=== PATIENT | female | born 1930 | race Caucasian/White ===

== ENCOUNTER 2017-04-10 14:00 | Inpatient (IN) | payer MEDICARE ==
[~2017-04-10] VITALS: Ht 160 cm; Wt 69.7 kg
--- NOTE | ~2017-04-10 | OR ---
PATIENT'S NAME: KIAN CASAS [facility] AGE: 87 Y [address] ROOM: [place] [address] LOCATION: [facility] ADMIT DATE: 04/23/2017 OR/Procedure Report DISCHARGE DATE: FAMILY PHYSICIAN: Ye Serra MD ATTENDING PHYSICIAN: ELIANA BURRIS SURGEON: Eliana Burris MD PLANER OFFBEARER: 1. Omar Simpson PA-C. 2. Saqib Roberts CST/DAILY. DATE OF PROCEDURE: 04/23/2017 PRE-OP DIAGNOSES: 1. Degenerative joint disease, right knee. 2. Severe preoperative flexion contracture. POST-OP DIAGNOSES: 1. Degenerative joint disease, right knee. 2. Severe preoperative flexion contracture. OPERATION: Right total knee arthroplasty with computer navigation. ANESTHESIA: Spinal anesthesia plus adductor canal block plus periarticular local anesthesia (ropivacaine with epinephrine and Toradol). ESTIMATED BLOOD LOSS: Less than 10 mL. DRAIN: None. SPECIMEN: None. COMPLICATIONS: None. IMPLANT SYSTEM: Korbel Triathlon. Size 3 right posterior stabilized femoral component. Size 2 universal modular tibial base plate. 9 mm posterior stabilized size 2, X3 tibial polyethylene insert. 32 mm oval 3-pegged patella component. INDICATIONS FOR SURGERY: Kian Casas is an 87-year-old female who presents with advanced right knee degenerative joint disease and associated severely compromised activities of daily living. The patient has decided to proceed with knee replacement after having been thoroughly counseled regarding the associated risks, benefits, and limitations. We have specifically reviewed the risks and implications of infection, deep venous thrombosis, pulmonary embolism, mortality, neurovascular complications, blood transfusion (and associated potential for disease transmission or transfusion reaction), PATIENT'S NAME: KIAN CASAS [facility] AGE: 87 Y [address] ROOM: [place] [address] LOCATION: [facility] ADMIT DATE: 04/23/2017 OR/Procedure Report DISCHARGE DATE: FAMILY PHYSICIAN: Ye Serra MD ATTENDING PHYSICIAN: ELIANA BURRIS stiffness, instability, mechanical deterioration of the components (due to wear and or loosening), and the potential need for revision. We have also emphasized the importance of active involvement and compliance with post- operative physical therapy as a means of optimizing range of motion and functional recovery. Informed consent has been granted. DESCRIPTION OF PROCEDURE: The patient was positioned supine after administration of anesthesia and prophylactic antibiotics. A well-padded pneumatic tourniquet was placed around the right proximal thigh, and the right lower extremity was prepped and draped with vigilant sterile technique. The patient's name as well as the intended operative side and procedure were confirmed with a verbal time-out involving myself, the circulating nurse, the scrub nurse, and the anesthesiologist. Examination under anesthesia demonstrated severe flexion contracture. There were no active skin lesions or masses. There was a moderate effusion. There was no erythema. There was no abnormal warmth. Range of motion under anesthesia was from a 25-degree flexion contracture to 110 degrees of flexion. There was no ligamentous insufficiency. The right lower extremity was elevated and exsanguinated with an Esmarch wrap, and the pneumatic tourniquet was inflated to 300mmHg. The knee was approached through a longitudinal midline incision. A medial parapatellar arthrotomy was performed and the patella was everted. Examination of the joint space demonstrated a large amount of benign-appearing translucent synovial fluid. There was generalized moderate mildly proliferative synovitis. There were no loose bodies. There were mild grade 3 degenerative changes extending across the equator of the patella. There were small osteophytes at the superior and inferior margins of the patella. There was a small osteophyte at the medial tibial plateau. There was full-thickness loss of articular cartilage involving 80% of the medial tibial plateau, and there was erosion of approximately 2 mm of subchondral bone from the medial tibial plateau. There was full-thickness loss of articular cartilage throughout the medial femoral condyle. There were mild grade 3 degenerative changes at the medial half of the lateral tibial plateau. There was extensive degenerative tearing of the anterior half of the medial meniscus and mild inner perimeter fraying at the lateral meniscus. Remnants of the menisci and cruciate ligaments were excised. The [email or web address] computer navigation femoral tracker was pinned in place at the distal aspect of the femoral trochlea. Absence of motion between the femur and the tracking device was confirmed manually and visually. Femoral osseous landmarks were obtained in order to calibrate the computer navigation system. Landmarks included the center of rotation of the ipsilateral hip, the center-point of PATIENT'S NAME: KIAN CASAS Cassi [facility] AGE: 87 Y [address] ROOM: [address] [address] LOCATION: [facility] ADMIT DATE: 04/23/2017 OR/Procedure Report DISCHARGE DATE: FAMILY PHYSICIAN: Ye Serra MD ATTENDING PHYSICIAN: ELIANA BURRIS the distal femur, the femoral AP axis, 57 points on the medial femoral condyle articular surface, and 57 points on the lateral femoral condyle articular surface. The [email or web address] computer navigation system was subsequently utilized to position the distal femoral resection block such that the distal femoral resection was performed perfectly perpendicular to the femoral mechanical axis. The distal femoral resection was performed with a [employer] oscillating saw. The [email or web address] computer navigation tibial tracker was pinned in place at the anterior aspect of the tibial plateau. Absence of motion between the tibia and the tracking device was confirmed manually and visually. Tibial osseous landmarks were obtained in order to calibrate the computer navigation system. Landmarks included the center-point of the tibial plateau, the AP tibial axis, 57 points on the medial tibial plateau articular surface, 57 points on the lateral tibial plateau articular surface, the medial malleolus, and the lateral malleolus. The [email or web address] computer navigation system was subsequently utilized to position the proximal tibial resection block such that the proximal tibial resection was performed perfectly perpendicular to the tibial mechanical axis. The proximal tibial resection was performed with a [employer] oscillating saw. Perpendicularity of the tibial resection with respect to the tibial shaft axis was reconfirmed by inserting a spacer- block attached to an extramedullary guide meet. External rotation of the anterior and posterior femoral resections was set parallel to the epicondylar axis and carefully adjusted in order to create a rectangular flexion gap. The box resection was performed with a reciprocating saw. Anterior and posterior chamfer resections were performed with the oscillating saw. Posterior condyle osteophytes were excised with an osteotome. All other osteophytes were excised with a rongeur. Resection of all remnants of the menisci was reconfirmed. Flexion and extension gaps were confirmed to be symmetric and well balanced with a spacer-block technique. The patella resection was performed with an oscillating saw such that the composite thickness of the reconstructed patella was equivalent to the thickness of the [place] patella. Patella tracking was confirmed to be optimal. Patellar tracking was optimal, and there was no need for a lateral retinacular release. All trial components were removed and all prepared osseous surfaces were thoroughly irrigated with pulsatile saline lavage and dried prior to cementing all three components in a single stage using Korbel Simplex cement containing pre-mixed tobramycin. All extruded excess cement was removed. The entire joint space was thoroughly inspected and thoroughly irrigated with bacteriostatic pulsatile saline lavage to assure that there was no residual debris of any sort. PATIENT'S NAME: KIAN CASAS [facility] AGE: 87 Y [address] ROOM: [address] [address] LOCATION: [facility] ADMIT DATE: 04/23/2017 OR/Procedure Report DISCHARGE DATE: FAMILY PHYSICIAN: Ye Serra MD ATTENDING PHYSICIAN: ELIANA BURRIS Final range of motion was from full extension (with no passive hyperextension) to 130 degrees of flexion. Patella tracking was reconfirmed to be optimal. There was good anteroposterior stability at 90 degrees of flexion. There was 0 mm of medial lift-off to valgus stress in full extension. There was 3 mm of lateral lift-off to varus stress in full extension. The arthrotomy was closed with multiple simple and [id number] interrupted #1 Vicryl. Subcutaneous tissues were thoroughly re-irrigated with bacteriostatic pulsatile saline lavage. Subcutaneous tissues were re- approximated with simple buried interrupted #0 Vicryl sutures. The skin was closed with simple buried interrupted 2-0 Vicryl sutures followed by surgical maya. The dressing consisted of Xeroform gauze, 4x4 gauze, ABD pads and two 6-inch Bandar Wraps. There were no intra-operative complications. It should be noted that the physician's blacksmith assistant played an active, integral role throughout this entire operation. By providing expert retraction, they greatly facilitated and expedited safe and effective exposure of the distal femur, proximal tibia and patella for preparation and implantation of the components. They were also actively involved in the patient's positioning, prepping and draping, as well as wound closure. MD KAREN WILDE/teto /[id number] d: 04/23/179 t: 04/27/17 1159, OPERATIVE SUMMARY
--- NOTE | ~2017-04-10 | DS ---
PATIENT'S NAME: KIAN CASAS [facility] AGE: 87 Y [address] ROOM: [place] [address] LOCATION: [facility] [place] ADMIT DATE: 04/23/2017 Discharge Summary DISCHARGE DATE: 04/30/2017 FAMILY PHYSICIAN: Ye Serra MD ATTENDING PHYSICIAN: Thomas Mooer PRIMARY DIAGNOSIS: Degenerative joint disease of the right knee. SECONDARY DIAGNOSES: 1. Chronic kidney disease, stage 3. 2. Depression. 3. Diabetes mellitus type. 4. Hypertension. 5. Hyperlipidemia. 6. Parkinson disease. 7. Dementia. PROCEDURE PERFORMED: Right total knee arthroplasty. HISTORY: The patient is an 87-year-old female, who presents with advanced right knee degenerative joint disease and associated severely compromised activities of daily living. The patient has decided to proceed with total knee arthroplasty after having been thoroughly counseled regarding the risks, benefits, limitations and alternatives. Please refer to the outpatient clinic notes and admission history and physical for this patient. HOSPITAL COURSE: The patient underwent a right total knee arthroplasty on 04/23/2017 without complications. Spinal anesthesia plus adductor canal block plus periarticular local anesthesia. was utilized. The patient received 24 hours of perioperative prophylactic antibiotics and remained hemodynamically stable, neurovascularly intact throughout the entire hospital course. The postoperative prophylactic deep venous thrombosis prophylaxis consisted of aspirin 325 mg, early mobilization and pneumatic compression devices. Daily physical therapy for gait training, transfer training range of motion and quadriceps isometric exercises were received. The patient progressed well in physical therapy. On the date of discharge, 04/30/2017, the incision at the knee was healing well and showed no signs of infection. DISPOSITION: Back to her assisted living facility. DISCHARGE ACTIVITY: The patient is to bear weight as tolerated with range of motion and quadriceps isometric exercises as instructed. The operative extremity is to be elevated at least 90% of the day. There is to be sterile 4x4 gauze dressings to the incision daily. Dr. Moore is to be notified PATIENT'S NAME: KIAN CASAS [facility] AGE: 87 Y [address] ROOM: [place] [address] LOCATION: [facility] [place] ADMIT DATE: 04/23/2017 Discharge Summary DISCHARGE DATE: 04/30/2017 FAMILY PHYSICIAN: Ye Serra MD ATTENDING PHYSICIAN: Thomas Moore immediately if there is any increased pain, fevers, chills erythema or drainage. DISCHARGE MEDICATIONS: 1. Aspirin 325 mg 1 tab p.o. daily for 30 days. 2. Loami 5/325 mg 1 to 2 tabs p.o. every 4 hours p.r.n. for pain. 3. Diazepam 5 mg 1/2 to 1 tab p.o. every 6 hours p.r.n. for muscle spasms. 4. She was then instructed to continue all her other preadmission medications as instructed by her internal medicine doctor. FOLLOWUP: Followup appointment is to be with Dr. Moore's office on 04/30/2017 for her initial postoperative evaluation with x-rays of the right knee and staple removal at that time. PREETI ALMAZAN PA-C FOR MD ADRIENNE WILDE/teto /[id number] d: 05/03/17 0107 t: 05/03/17 0855, DISCHARGE SUMMARY
[2017-04-10] MEDS ORDERED: ULTRAM50 MG PO (14:08)
[2017-04-10] MEDS ORDERED: TENORETIC PO (14:08)
[2017-04-10] MEDS ORDERED: ASPIRIN EC81 MG PO (14:09)
[2017-04-10] MEDS ORDERED: TAB-A-VITE1 EACH PO (14:09)
[2017-04-10] MEDS ORDERED: VITAMIN B-121000 MCG PO (14:09)
[2017-04-10] MEDS ORDERED: KLONOPIN0.5 MG PO (14:10)
[2017-04-10] MEDS ORDERED: K-TAB 10MEQ10 MEQ PO (14:10)
[2017-04-10] MEDS ORDERED: CALTRATE 600 WI1 TAB PO (14:11)
[2017-04-10] MEDS ORDERED: EFFEXOR XR150 MG PO (14:12)
[2017-04-10] MEDS ORDERED: SINEMET 25-1001 EACH PO (14:13)
[2017-04-10] MEDS ORDERED: GLUCOPHAGE500 MG PO (14:26)
[2017-04-10] MEDS ORDERED: FISH OIL 1,0001 EAC4 PO (14:27)
[2017-04-10] MEDS ORDERED: SEROQUEL50 MG PO (14:28)
[2017-04-10] MEDS ORDERED: CRESTOR5 MG PO (14:29)
[2017-04-10] MEDS ORDERED: OMEPRAZOLE40 MG PO (15:16)
[2017-04-23 10:37] LABS: ALBUMIN 3.5 gm/dL (3.5-5.0); ALK PHOS 117 IU/L (33-138); ANION GAP 12.1 (10.0-19.0); AST 14 IU/L (10-40); BLOOD UREA NITROGEN 21 mg/dL (6-24); CALCIUM 9.2 mg/dL (8.5-10.5); CHLORIDE 98 mMol/L (96-110); CO2 29 mMol/L (22-32); CREATININE 0.8 mg/dL (0.5-1.1); POTASSIUM 4.1 mMol/L (3.7-5.1); SODIUM 135 mMol/L (135-145); TOTAL BILIRUBIN 0.5 mg/dL (0.0-1.5); TOTAL PROTEIN 7.4 g/dL (6.0-8.4)
[2017-04-23 10:38] LABS: ALT < 10 IU/L (12-78)
--- NOTE | 2017-04-23 20:13 | NUR ---
Significant Event: UP TO FLOOR FROM PACU AT 1620. DRESSING TO R) KNEE C/D/I. C/O NUMBNESS TO R) LEG, PEDAL PULSE PRESENT, ABLE TO WIGGLE TOES AND DORSI/PLANTER FLEX R) ANKLE. EZ WRAP TO R) KNEE. DENIES PAIN. BP'S ELEVATED 180-200 SYSTOLIC, Maryann MURRELL PERSONAL INJURY LEGAL ASSISTANT NOTIFIED AND NEW ORDERS. RECIEVED IV HYDRALAZINE AT 1756 BP 194/90, RECHECK BP 169/[address] HERNANDEZ INFORMED. PATIENT BLADDER SCAN FOR 325ML. KNEE HIGH TEDS AND FOOT PUMPS ON. FAMILY AT BEDSIDE, VERY SUPPORTIVE. Follow up:
--- NOTE | 2017-04-24 04:14 | NUR ---
Pt AOx3. Pt up with two assist to commode. Pt is supposed to point toes up and extend thigh to bed every hour. Pt is WBAT. Pedal pulse thready had to use doppler once. Pt had one scant bm. Incontinent at times. Frederic for pain in addition to scheduled ultram. ACHS accuchecks. Dressing is C/D/I. Hypertensive 150-171 systolic. HOLD ROM. History of parkinsons and diabetes. Follow up: hypertension, activity.
--- NOTE | 2017-04-24 09:20 | NUR ---
Introduced self/role to patient and her daughter. Lives at [facility] in [place]. Plan is to return there, goal is discharge tomorrow. A different daughter would be transporting. [facility] staff Liset - Director and Shira - RN, will be coming to visit this afternoon and bringing her walker from her apartment. Will contact them to see if they need any paperwork from me. 1130 Left a message for Shira #[phone] at [facility] seeing if they needed anything from me.
--- NOTE | 2017-04-24 18:25 | NUR ---
Significant Event: Alert and oriented X 3. Patient can be a little forgetful. SBP 140's, 170's and 190's. HR 80's. ACHS accucheck 128, 183, 135. CSM intact, states her toes on her left foot are a little tingly. Up with 1 assist to commode, possibly 2 assist when she is tired. Proctor given X 2 last given at 1743. Prune juice given at 1730 as she does feel like she is a little constipated. Pleasant and cooperative with cares. Follow up:
--- NOTE | 2017-04-25 02:33 | NUR ---
Significant Event: Pt A&Ox3, up 1x assist to commode WBAT. Pt is to continue to point toes up and extend thigh to bed every hour. [place]ola and valium given in addition to scheduled ultram for leg and upper thigh pain. ACHS accuchecks, HS BG 182. Dressing is C/D/I. History of parkinsons and diabetes. PIV did not flush well, discontinued with catheter tip intact. SBP elevated during first assessment 186/81; retaken 177/83. Otherwise, VSS and afebrile. Follow up: Hypertension management; possible discharge today
--- NOTE | 2017-04-25 09:15 | NUR ---
Followed up with patient and daughter. Would like to know about Swing Bed options. Will check into [facility]. 0945 Called and left a message for [facility] in [place]. 1115 Shira from [facility] called. Updated on TCU referral. 1120 Faxed referral to [facility]. 1145 Teetee called back to get referral info, hadn't seen fax but checked and had it. 1330 Teetee left me a message they can no accept due to antipsychotic drug usage. 1340 Called and updated daughter Milena - will plan for back to [facility] then. [address] [facility] to update. Faxed PT/OT notes. 1445 Spoke to Jae Sim about maybe keeping patient here thru holiday weekend if we had any concerns, he agreed. Placed a note on the chart. [address] [facility] called with some questions mainly related to HHC. I will have to see what Dr Moore wants in regards to this. Company they use is [facility] [employer]. Updated charge nurse Olamide.
--- NOTE | 2017-04-25 10:48 | NUR ---
Student Nurse provided patient cares from [phone]. Destin Dsouza RN [facility] instructor.
--- NOTE | 2017-04-25 17:41 | NUR ---
Pt returned from OR at 1510 after having Rt total hip for fracture repain. He will start hrly VS for you at 1900. He denies pain. He was confused and groggy when returned, but mostly oriented now, telling stories and talking with nurses and family. Pt has mepilex dressing to Rt hip, ice to hip, CSM WNL to Rt lower extremity. Uses IS at 1250. No void yet. HR 100-110 and digoxin IV 250 Mcg given at 1730. Pt on tele and no calls. Family at bedside. Pt had general anesthetic due to being on blood thinner. Was tachy and low BP preop. BP last was 112/74. On O2 at 2 liters. [place] [employer], fentanyl and zofran in PACU.
--- NOTE | 2017-04-25 17:52 | NUR ---
Pt alert, disoriented at times to place and forgetful about surgery. Pt seems better this afternoon. CM working on swingbed placement. Pt has had ultram x1 at 0900 and tylenol at 1150. Pt states she incomfortable at this time. Ice to knee. CSM WNL. Ambulates with 1 assist to bathroom about 3 times today and up BSC this kristen. Pt does get SOB with activity and gets weak, mich on trip back from bathroom. Does better after gets going. Mepilex dressing intact. Pt IS ust at 1999. Have to remind her. Pt had small BM and voids well. Brief on as incontinence at times.
--- NOTE | 2017-04-26 02:10 | NUR ---
Significant Event: Dressing is clean, dry and intact. CSM WNL. Incontinent of urine. 2 assist with transfers. On room air. Hypertensive. Ultram at 2032. Refused pain medication since. Accu check. Forgetful at times, but is A&O x3. Follow up:
--- NOTE | 2017-04-26 09:15 | NUR ---
Spoke with Jae Rodriguez, patient and her daughter Milena. Plan for a Saturday discharge back to [facility]. TCU said no, there are no other nursing homes which will admit over the holiday weekend and an accepting doctor would have to be found. [facility] staff are familiar with her and her needs/dementia. Will see about getting her followup appointment with Dr Moore made on Saturday as well. Called [facility] #[phone] and spoke to Shira. She was happy with this plan as they will have minimal staff over the holiday weekend. Charge nurse Usha called [facility] office. Followup appointment is Saturday at 1420. Will dismiss from 3N before appointment. Will go to appointment, them back to [facility].
--- NOTE | 2017-04-26 11:57 | NUR ---
Student nurse provided cares to patient from [phone]. Gian RN-[facility] Instructor
--- NOTE | 2017-04-26 17:44 | NUR ---
Pt alert, oriented, somewhat forgetful, but much better than yesterday. Pt has been in recliner all shift and amb to BR, up ladd and to BSC throughout the shift. Pt gets somewhat SOB on exertion. Does better sometimes than others. Up ladd with PT this afternoon and SOB not as much. Ice to knee. Dressing Dry and intact. CSM WNL. Routine ultram today and pain is 2-3. Occasional Rt thigh pain but subsides per pt report. Pt had large BM. Stress incontinence this morning otherwise voids ok. Plan for Assisted living [facility] on Saturday. Pt had shower today.
--- NOTE | 2017-04-27 04:04 | NUR ---
Pt Alert and oriented forgetfull at times. 1-2 assist to BSC. CSM intact. Scheduled ultram and prn tylenol for pain. Incontinent at times. Hx of parkinsons. Hypertensive 150's-160's systolic. ACHS accucheck. Dressing C/D/I.
--- NOTE | 2017-04-27 13:08 | NUR ---
Significant Event: AOx3. Hypertension. B/p better after meds given. Dressing to R) knee is C/D/I. AC&HS accuchecks. Up with 1 assist with carla. Lorrie and Horacio for pain. Follow up:
--- NOTE | 2017-04-28 04:59 | NUR ---
Significant Event: PATIENT IS ALERT AND ORIENTED X3 CAN BE FORGETFUL AT TIMES. TACHY WITH HYPERTENSION NOTED RESOLVED AFTER MEDS GIVEN. DRESSING TO R KNEE IS C/D/I WITH ICE APPLIED TO KNEE. ACHS ACCUCHECKS. ON ROOM AIR. WAITING FOR PLACEMENT TO [facility] ON SATURDAY. AIR. Follow up:
--- NOTE | 2017-04-28 10:58 | NUR ---
A-SCREENED D/T LOS; S/P R)TKA. PLAN TO D/C ON 04/30 BACK TO [facility] HT: 63 IN. WT: 69.7 KG. BMI: 27.2 LABS AND MED REVIEWED DIET RX: CONSISTENT CARB. PO INTAKE SINCE ADMIT HAS BEEN 25-100%; AVG IS 81%. EST NUTR NEEDS: [id number] KCALS (20-25 KCALS/KG), 70-77 GM PROTEIN (1.0-1.1 GM/KG), AND 1 ML FLUID/KCAL D-NOT AT NUTRITION RISK; NO NUTRITION DX IDENTIFIED I-CONTINUE W/CURRENT DIET RX M/E-IF STILL HERE, F/U PO INTAKE AND POC IN 5-7 DAYS
--- NOTE | 2017-04-28 12:58 | NUR ---
Significant Event: AOx3. VSS. CSM WNL. Dressing to R) knee is C/D/I. Up with 1 asssist with walker. Incontinent at times. Had LG BM this morning. AC&HS accuchecks. Going to [facility] in [place] on Saturday. Follow up:
--- NOTE | 2017-04-29 04:20 | NUR ---
Significant Event: A/O X 3. SAT UP IN RECLINER CHAIR EARLIER EVENING. UP WITH ONE ASSIST, WALKER AND GAITBELT. MOVES WITH DIFFICULTY, SLOW. MEPILEX DRSGS RIGHT KNEE DRY-INTACT. EZ-WRAP ON. VOIDED X 1 AND WAS INCONTINENT OF URINE. BRIEFS CHANGED. HAD ULTRAM 50MG TAB ONE FOR PAIN AT 2107. AC AND HS ACCUCHECK. AT 2099 ACCUCHECK 139, NO COVERAGE NEEDED. GOING TO [facility] IN [place] SATURDAY. Follow up:
--- NOTE | 2017-04-29 17:01 | NUR ---
Significant Event:Mepilex dressing dry and intact to rt knee. Up in chair and ambulates to BR with walker and one assist. Gait slow. Accuchecks 125, 185, 103. Showered with OT. Incontenent at times. Plan to transfer to [facility] tomorrow Follow up:
--- NOTE | 2017-04-30 02:58 | NUR ---
Significant Event: Alert and oriented. Vital signs stable. Mepilex dressing to R) knee is CDI. CSM WNL. Pt ambulates slowly with 1 assist, gait belt and walker. Ambulating to bathroom to void. Had a small BM. No IV access. Scheduled ultram given at HS. [place] given X1 2345. Tylenol given at 0240. Ice to knee. Elevated. Accucheck at HS was 160. Follow up: To transfer to [facility] today.
--- NOTE | 2017-04-30 09:30 | NUR ---
Franchesca Leon notified me family was not planning to take to appointment once discharged, they are working. 1000 Called daughter Milena, she will see if her sister can get off work early and be to the hospital by 1400. Dottie from [facility] called and asked for orders. 1020 Milena called back, sister will be here at 1400. Informed ry Sorensen. Started discharge packet. 1045 Dottie called, hard time reading orders. Scanned and emailed. 1120 saw patient, no change to orders. Let [facility] know this. 1420 Asked Jennifer if patient was ready to go? Just needed to finish packet, aware doctors appointment is at 1440.
[2017-04-30] MEDS ORDERED: ASPIR-TRIN325 MG PO (14:42)
[2017-04-30] MEDS ORDERED: COLACE100 MG PO (14:44)
[2017-04-30] MEDS ORDERED: MIRALAX17 GM PO (14:46)
[2017-04-30] MEDS ORDERED: TYLENOL325 MG PO (14:50)
[2017-04-30] MEDS ORDERED: NORCO 5-325 TA1 EACH PO (14:52)
[2017-04-30] MEDS ORDERED: VALIUM5 MG PO (14:53)
--- NOTE | 2017-04-30 15:35 | NUR ---
D:Orders received for the patient to be dismissed. I:Dismissal instructions were prepared and reviewed with the patient and her daughter. The following information was reviewed: diet and activity recommendations at home, dressing/incisional care for home, s/s of infection and abnormalities to monitor for and to report to MD if occur, home medications/new prescription medications, and plans for follow up with Dr. Moore yet this afternoon. Janee teaching reviewed with the patient on the following information: 1 - Preventing Deep Vein Thrombosis After Surgery 2 - Colace 3 - Miralax 4 - Tylenol 5 - [place] 6 - Valium 7 - Discharge Instructions:Caring for Your Incision and 8 - Discharge Instructions:Total Knee Replacement. All of the dismissal teaching and prescriptions were sent in the packet for the [facility] to have. R:The patient and her daughter verbalized understanding of the teaching. P:The patient's primary nurse was informed that the dismissal teaching had been completed. The paperwork/prescriptions were given to the patient along with the packet. The patient was dismissed to [facility] via wheelchair. Dr. Moore's office had been notified that the patient would be late for her appointment due to dismissal delay. Farheen ARANGO
== END 2017-04-30 15:45 | disposition other institution (70) | DRG 470 ==
LOC: G3N 04-23 09:26 → GMSU 04-28 15:15
PROVIDERS: ADMIT Orthopaedic Surgery
PROC: 0SRC0J9 Replacement of Right Knee Joint with Synthetic Substitute, Cemented, Open Approach (ICD-10-PCS; principal; 2017-04-23)
PROC: XR2G021 Monitoring of Right Knee Joint using Intraoperative Knee Replacement Sensor, Open Approach, New Technology Group 1 (ICD-10-PCS; principal; 2017-04-23)
DX: M17.11 Unilateral primary osteoarthritis, right knee (principal); E11.22 Type 2 diabetes mellitus with diabetic chronic kidney disease; G20 Parkinson's disease; N18.3 Chronic kidney disease, stage 3 (moderate); F32.9 Major depressive disorder, single episode, unspecified; E78.5 Hyperlipidemia, unspecified; I12.9 Hypertensive chronic kidney disease with stage 1 through stage 4 chronic kidney disease, or unspecified chronic kidney disease; F02.80 Dementia in other diseases classified elsewhere, unspecified severity, without behavioral disturbance, psychotic disturbance, mood disturbance, and anxiety
CPT/HCPCS: C1713; C1776; J0360; J0690; J1170; J1885; J2001; J2250; J2795; J7030; J7120

== ENCOUNTER → 2017-04-11 | Outpatient (CLI) | payer MEDICARE ==
[~2017-04-11] MED LIST: ASPIR-TRIN325 MG PO; ASPIRIN EC81 MG PO; CALTRATE 600 WI1 TAB PO; COLACE100 MG PO; CRESTOR5 MG PO; EFFEXOR XR150 MG PO; FISH OIL 1,0001 EAC4 PO; GLUCOPHAGE500 MG PO; K-TAB 10MEQ10 MEQ PO; KLONOPIN0.5 MG PO; MIRALAX17 GM PO; NORCO 5-325 TA1 EACH PO; OMEPRAZOLE40 MG PO; SEROQUEL50 MG PO; SINEMET 25-1001 EACH PO; TAB-A-VITE1 EACH PO; TENORETIC PO; TYLENOL325 MG PO; ULTRAM50 MG PO; VALIUM5 MG PO; VITAMIN B-121000 MCG PO
== END ==
LOC: GNJRC 10:51
DX: Z01.818 Encounter for other preprocedural examination (principal); M17.11 Unilateral primary osteoarthritis, right knee